=== PATIENT | female | born 1980 | race Caucasian/White ===

== ENCOUNTER 2017-06-13 04:24 | Emergency (ER) | payer OTHER ==
[~2017-06-13] VITALS: Ht 157.5 cm; Wt 56.0 kg
[2017-06-13 04:35] VITALS: Ht 157.5 cm; Wt 56.0 kg
[2017-06-13 07:08] LABS: BASOPHIL # 0.1 10^3/ul (0.0-0.1); BASOPHILS % 0.5 % (0.0-2.0); EOSINOPHILS # 0.3 10^3/ul (0.0-0.5); EOSINOPHILS % 2.9 % (0.0-7.0); HEMATOCRIT 42.6 % (37.0-47.0); HEMOGLOBIN 14.3 g/dl (12.0-16.0); LYMPHOCYTES # 3.1 10^3/ul (0.8-2.9); LYMPHOCYTES % 32.2 % (15.0-51.0); MEAN CORPUSCULAR HEMOGLOBIN 30.7 pg (29.0-33.0); MEAN CORPUSCULAR HGB CONC 33.6 g/dl (32.0-37.0); MEAN CORPUSCULAR VOLUME 91.4 fl (82.0-101.0); MEAN PLATELET VOLUME 10.8 fl (7.4-10.4); MONOCYTE # 0.6 10^3/ul (0.3-0.9); MONOCYTES % 6.5 % (0.0-11.0); NEUTROPHIL # 5.5 10^3/ul (1.6-7.5); NEUTROPHILS % 57.6 % (39.0-77.0); PLATELET COUNT 263 10^3/UL (140-415); RED BLOOD COUNT 4.66 10^6/ul (4.20-5.40); WHITE BLOOD COUNT 9.6 10^3/ul (4.8-10.8)
[2017-06-13 07:15] LABS: ADD UMIC YES; UR ASCORBIC ACID NEGATIVE (NEGATIVE); UR BACTERIA FEW /HPF (NONE SEEN); UR BILIRUBIN (Dip) NEGATIVE (NEGATIVE); UR BLOOD (Dip) 1+ mg/dL (NEGATIVE); UR CLARITY CLEAR (CLEAR); UR COLOR STRAW (YELLOW); UR GLUCOSE (Dip) NEGATIVE (NEGATIVE); UR KETONES (Dip) NEGATIVE (NEGATIVE); UR LEUKOCYTE ESTERASE (Dip) NEGATIVE Leu/ul (NEGATIVE); UR NITRITE (Dip) NEGATIVE (NEGATIVE); UR RBC 3 /HPF (0-5); UR SPECIFIC GRAVITY (Dip) 1.008 (1.003-1.030); UR TOTAL PROTEIN (Dip) NEGATIVE (NEGATIVE); UR UROBILINOGEN (Dip) NEGATIVE (NEGATIVE)
[2017-06-13 07:21] LABS: ALBUMIN 4.9 g/dl (3.3-4.9); ALBUMIN/GLOBULIN RATIO 1.25; BILIRUBIN,INDIRECT 0.5 mg/dl (0-1.1); BILIRUBIN,TOTAL 0.5 mg/dl (0.2-1.3); CALCIUM 9.7 mg/dl (8.4-10.2); CREATININE 0.73 mg/dl (0.44-1.00); POTASSIUM 3.9 mmol/L (3.5-5.1); TOTAL PROTEIN 8.8 g/dl (6.1-8.1)
[2017-06-13] MEDS ORDERED: SOD CHLORIDE 0.9% 100 ML ONE (07:57)
[2017-06-13] MEDS ORDERED: IOHEXOL 300MG/ML 150 ML BTL ONE (07:57)
--- NOTE | 2017-06-13 08:34 | RADRPT ---
AMENDMENT: 06/13/2017 8:46:49 AM Cruz Mendoza M.D A history of perianal pain was given. There is mild subcutaneous stranding adjacent to the coccyx. N o fluid collection is identified. PROCEDURE: CT Abdomen and pelvis with contrast. CLINICAL INDICATION: Abdominal pain. TECHNIQUE: CT scan of the abdomen and pelvis with contrast was performed on a multi-detector high -resolution CT scanner. The patient was scanned following the uncomplicated administration of 90 cc of Omnipaque 300 intravenous contrast. Coronal and sagittal reformatted images were obtained from the axial source images. Images were reviewed on a high-resolution PACS workstation. One or more of the following dose reduction techniques were used: - Automated exposure control. - Adjustment of the mA and/or kV according to patient size. - Use of iterative reconstruction technique. Exam CTD/vol = 5.23 mGy. Total exam DLP = 269.96 mGy-cm. COMPARISON: None. FINDINGS: Evaluation of the lung bases demonstrates no pleural or parenchymal disease. Abdomen: The liver is normal in size. There is no focal mass or dilatation of the biliary tree. T he gallbladder is not distended. The spleen, pancreas and bilateral adrenal glands are within lisy l limits. Bilateral kidneys are normal in size with symmetric enhancement. There is no focal mass, hydronephrosis or hydroureter. There is no retroperitoneal adenopathy. The abdominal aorta is of normal caliber. There is moderate retained stool within the proximal colon. There is no bowel obstruction or free a ir. The appendix is not visualized. There are no pericecal inflammatory changes to suggest appendic itis. There is no diverticulosis or diverticulitis. There is no ascites. Pelvis: The bladder is unremarkable. There is an intrauterine device. There is a right ovarian cy st measuring 2.0 x 1.9 cm. There is no significant pelvic adenopathy or free fluid. Evaluation of the osseous structures demonstrates no suspicious lytic or blastic lesion. IMPRESSION: Moderate retained stool within the proximal colon. Right ovarian 2.0 cm cyst. Intrauterine device. Otherwise no acute abnormality identified within the abdomen and pelvis. .Cruz Mendoza MD, Date Time Electronically viewed and signed by .Cruz Mendoza MD, on 06/13/2017 08:46 .T/
[2017-06-13] MEDS ORDERED: LIDOCAINE 1% (MDV) 20 ML INJ SC ONE (09:00)
[2017-06-13] MEDS ORDERED: SULF1TAB31 PO (09:33)
[2017-06-13] MEDS ORDERED: IBUP400T22 PO (09:33)
[2017-06-13] MEDS ORDERED: CEPH-443 PO (09:33)
--- NOTE | 2017-06-13 10:01 | ERD ---
ER Documentation Chief Complaint Date/Time DATE: 06/13/17 TIME: 09:55 Chief Complaint rectum oozing w/serosanguinous fluid as per pt, r/t childbirth HPI 37-year-old female patient with a past medical history of status post appendectomy as well as hemorrhoids presents to the ED anal pain that started 3 days ago. Reports that it was oozing with yellowish pink discharge. Denies having anal sex. Denies vaginal bleeding, fever, chills, vaginal discharge, dysuria, urgency, melena, bloody stools, frequency. Denies any chest pain, abdominal pain, nausea, vomiting. ROS All systems reviewed and are negative except as per history of present illness. Medications Home Meds Active Scripts Clindamycin Hcl* (Clindamycin Hcl*) 300 Mg Capsule, 300 MG PO TID for 10 Days, CAP Prov:TATIANA LASSITER NP 06/16/17 Ibuprofen* (Motrin*) 400 Mg Tab, 400 MG PO Q6, #30 TAB Prov:JIMMY MCGREGOR-C 06/13/17 Sulfamethoxazole/Trimethoprim* (Bactrim Ds* Tablet) 1 Each Tablet, 1 TAB PO BID for 7 Days, #14 TAB Prov:JIMMY MCGREGOR-C 06/13/17 Cephalexin* (Keflex*) 500 Mg Capsule, 500 MG PO QID for 7 Days, CAP Prov:JIMMY MCGREGOR PA-C 06/13/17 Allergies Allergies: Coded Allergies: Penicillins (Verified Allergy, Unknown, 06/13/17) PMhx/Soc History of Surgery: Yes (appendectomy) Hx Alcohol Use: Yes (occassional) Hx Substance Use: No Hx Tobacco Use: No Smoking Status: Current some day smoker Physical Exam Vitals Vital Signs Date Time Temp Pulse Resp B/P Pulse Ox O2 Delivery O2 Flow Rate FiO2 06/13/17 04:35 98.3 81 18 128/83 100 Physical Exam Const: [id number], well-nourished. In no acute distress. Head: Atraumatic, normocephalic Eyes: Normal Conjunctiva without injection. No purulent discharge. ENT: Normal external ear, nose. Moist oropharynx without tonsillar exudates. Non -erythematous pharynx. Uvula midline. No drooling. No trismus. Neck: No cervical midline tenderness. Full range of motion. No meningismus. No cervical lymphadenopathy. No JVD. Resp: Clear to auscultation bilaterally. No wheezing, rhonchi, rales, or crackles. No accessory muscle use. No retractions. Cardio: Regular rate and rhythm. No murmurs, rubs or gallops. Abd: Soft, nontender, non distended. Normal bowel sounds. No palpable masses. No rebound tenderness. No guarding. Negative McBurney's point. Negative psoas sign. Negative obturator sign. 2 x 2 centimeter fluctuant abscess noted on the superior portion of patient's anus. No surrounding erythema or edema. Yellow purulent discharge noted. Tenderness to palpation of the abscess. Skin: No petechiae or rashes Back: No midline tenderness. No CVA tenderness. Ext: No cyanosis, or edema. Neur: Awake and alert. Normal gait. Normal coordination. Psych: Normal Mood and Affect Results 24 hrs Laboratory Tests Test 06/13/17 06:50 White Blood Count 9.610^3/ul Red Blood Count 4.6610^6/ul Hemoglobin 14.3g/dl Hematocrit 42.6% Mean Corpuscular Volume 91.4fl Mean Corpuscular Hemoglobin 30.7pg Mean Corpuscular Hemoglobin Concent 33.6g/dl Red Cell Distribution Width 12.0% Platelet Count 11029^3/UL Mean Platelet Volume 10.8fl Neutrophils % 57.6% Lymphocytes % 32.2% Monocytes % 6.5% Eosinophils % 2.9% Basophils % 0.5% Nucleated Red Blood Cells % 0.0/100WBC Neutrophils # 5.510^3/ul Lymphocytes # 3.110^3/ul Monocytes # 0.610^3/ul Eosinophils # 0.310^3/ul Basophils # 0.110^3/ul Nucleated Red Blood Cells # 0.010^3/ul Urine Color STRAW Urine Clarity CLEAR Urine pH 6.0 Urine Specific [place] 1.008 Urine Ketones NEGATIVEmg/dL Urine Nitrite NEGATIVEmg/dL Urine Bilirubin NEGATIVEmg/dL Urine Urobilinogen NEGATIVEmg/dL Urine Leukocyte Esterase NEGATIVELeu/ul Urine Microscopic RBC 3/HPF Urine Microscopic WBC 2/HPF Urine Bacteria FEW/HPF Urine Hemoglobin 1+mg/dL Urine Glucose NEGATIVEmg/dL Urine Total Protein NEGATIVEmg/dl Sodium Level 141mmol/L Potassium Level 3.9mmol/L Chloride Level 104mmol/L Carbon Dioxide Level 25mmol/L Anion Gap 16 Blood Urea Nitrogen 11mg/dl Creatinine 0.73mg/dl Glucose Level 100mg/dl Calcium Level 9.7mg/dl Total Bilirubin 0.5mg/dl Direct Bilirubin 0.00mg/dl Indirect Bilirubin 0.5mg/dl Aspartate Amino Transf (AST/SGOT) 19IU/L Alanine Aminotransferase (ALT/SGPT) 30IU/L Alkaline Phosphatase 54IU/L Total Protein 8.8g/dl Albumin 4.9g/dl Globulin 3.90g/dl Albumin/Globulin Ratio 1.25 Lipase 131U/L Current Medications Medications (Trade) Dose Ordered Sig/Amirah Route PRN Reason Start Time Stop Time Status Last Admin Dose Admin IV Flush 10 ml 10 ml STK-MED ONCE .ROUTE 06/13/17 07:57 06/13/17 07:58 DC 06/13/17 08:16 Sodium Chloride (NS) 100 ml @ ud STK-MED ONCE .ROUTE 06/13/17 07:57 06/13/17 07:58 DC 06/13/17 08:16 Iohexol (Omnipaque 300mg/ ml) 150 ml STK-MED ONCE .ROUTE 06/13/17 07:57 06/13/17 07:58 DC 06/13/17 08:17 Lidocaine (Xylocaine 1% (Mdv) 20 ml) 20 ml ONCE ONCE SC 06/13/17 09:00 06/13/17 09:01 DC Procedures/MDM 37-year-old female patient with no significant past medical history presents to the ED complaining of drainage noted near her rectum. Patient is afebrile and nontoxic-appearing. Patient has normal vital signs. Patient was further worked up with CBC, CMP, lipase, UA, CT of abdomen and pelvis with contrast. CBC: No leukocytosis. No e/o of systemic infection. No e/o anemia. CMP: No e/o severe acidosis, alkalosis, renal failure, diabetic ketoacidosis, liver disease Lipase within normal limits. Urine: No leukocyte esterase, no nitrites, no hematuria. Urine : Negative AMENDMENT: 06/13/2017 8:46:49 AM Cruz Mendoza M.D A history of perianal pain was given. There is mild subcutaneous stranding adjacent to the coccyx. No fluid collection is identified. PROCEDURE: CT Abdomen and pelvis with contrast. CLINICAL INDICATION: Abdominal pain. TECHNIQUE: CT scan of the abdomen and pelvis with contrast was performed on a multi-detector high-resolution CT scanner. The patient was scanned following the uncomplicated administration of 90 cc of Omnipaque 300 intravenous contrast. Coronal and sagittal reformatted images were obtained from the axial source images. Images were reviewed on a high-resolution PACS workstation. One or more of the following dose reduction techniques were used: - Automated exposure control. - Adjustment of the mA and/or kV according to patient size. - Use of iterative reconstruction technique. Exam CTD/vol = 5.23 mGy. Total exam DLP = 269.96 mGy-cm. COMPARISON: None. FINDINGS: Evaluation of the lung bases demonstrates no pleural or parenchymal disease. Abdomen: The liver is normal in size. There is no focal mass or dilatation of the biliary tree. The gallbladder is not distended. The spleen, pancreas and bilateral adrenal glands are within normal limits. Bilateral kidneys are normal in size with symmetric enhancement. There is no focal mass, hydronephrosis or hydroureter. There is no retroperitoneal adenopathy. The abdominal aorta is of normal caliber. There is moderate retained stool within the proximal colon. There is no bowel obstruction or free air. The appendix is not visualized. There are no pericecal inflammatory changes to suggest appendicitis. There is no diverticulosis or diverticulitis. There is no ascites. Pelvis: The bladder is unremarkable. There is an intrauterine device. There is a right ovarian cyst measuring 2.0 x 1.9 cm. There is no significant pelvic adenopathy or free fluid. Evaluation of the osseous structures demonstrates no suspicious lytic or blastic lesion. IMPRESSION: Moderate retained stool within the proximal colon. Right ovarian 2.0 cm cyst. Intrauterine device. Otherwise no acute abnormality identified within the abdomen and pelvis. Patient likely has a perianal abscess. Patient gave consent to drain it at this time. Betadine used to clean the affected area. 11 blade scalpel used to make a 0.5 cm vertical linear cut with copious purulent discharged drained. No complications after the procedure. Patient tolerated the procedure. Low suspicion for perirectal abscess, deep space infection, abscess tracking, fissures, fistula, or other emergent conditions. Low suspicion for ectopic , ovarian torsion, gastritis, GERD, peptic ulcer disease, cholecystitis , choledocholithiasis, cholangitis, pancreatitis, appendicitis, bowel obstruction, ileus, volvulus, nephrolithiasis, pyelonephritis, hepatitis, perforated viscus, diverticulitis, strangulated/incarcerated hernia, DKA, acute abdomen, mesenteric ischemia or other emergent conditions. Discharge medications: Bactrim Keflex, Ibuprofen Follow up with primary care physician in 1-2 days for referral to [facility]. Instructed patient to return to the ED sooner for any worsening symptoms. Patient's questions were answered. Patient understood and agreed with discharge plan. Patient discharged stable. Departure Diagnosis: Primary Impression: Perianal abscess Condition: Stable Patient Instructions: Jennifer-Anal Abscess, I And D Referrals: COMMUNITY CLINICS YOU HAVE RECEIVED A MEDICAL SCREENING EXAM AND THE RESULTS INDICATE THAT YOU DO NOT HAVE A CONDITION THAT REQUIRES URGENT TREATMENT IN THE EMERGENCY DEPARTMENT. FURTHER EVALUATION AND TREATMENT OF YOUR CONDITION CAN WAIT UNTIL YOU ARE SEEN IN YOUR DOCTORS OFFICE WITHIN THE NEXT 1-2 DAYS. IT IS YOUR RESPONSIBILITY TO MAKE AN APPOINTMENT FOR FOLOW-UP CARE. IF YOU HAVE A PRIMARY DOCTOR --you should call your primary doctor and schedule an appointment IF YOU DO NOT HAVE A PRIMARY DOCTOR YOU CAN CALL OUR PHYSICIAN REFERRAL HOTLINE AT IF YOU CAN NOT AFFORD TO SEE A PHYSICIAN YOU CAN CHOSE FROM THE FOLLOWING [facility] [address] [facility]. [facility] [address] [facility]. [facility] [address] [facility] [address] [facility]. [facility] [address] [facility]. [facility]. [address] [facility] YOU HAVE RECEIVED A MEDICAL SCREENING EXAM AND THE RESULTS INDICATE THAT YOU DO NOT HAVE A CONDITION THAT REQUIRES URGENT TREATMENT IN THE EMERGENCY DEPARTMENT. FURTHER EVALUATION AND TREATMENT OF YOUR CONDITION CAN WAIT UNTIL YOU ARE SEEN IN YOUR DOCTORS OFFICE WITHIN THE NEXT 1-2 DAYS. IT IS YOUR RESPONSIBILITY TO MAKE AN APPOINTMENT FOR FOLOW-UP CARE. IF YOU HAVE A PRIMARY DOCTOR --you should call your primary doctor and schedule and appointment IF YOU DO NOT HAVE A PRIMARY DOCTOR YOU CAN CALL OUR PHYSICIAN REFERRAL HOTLINE AT . IF YOU CAN NOT AFFORD TO SEE A PHYSICIAN YOU CAN CHOSE FROM THE FOLLOWING [facility] INSTITUTIONS: [facility] [address] [place] [address] [facility] [address] [place] [address] [facility] [address] [place] [address] [facility] URGENT CARE/SPECIALTIES Additional Instructions: Follow up in 2 days in your clinic for wound check. Call your primary care doctor TOMORROW for an appointment during the next 2-3 days.See the doctor sooner or return here if your condition worsens before your appointment time. JIMMY MCGREGOR PA-C Jun 13, 2017 10:01
[2017-06-13 10:05] VITALS: BP 116/72; PULSE 76; RESP 18; TEMP 98.2
== END 2017-06-13 10:07 | disposition home or self-care (01) ==
LOC: FTE 04:24
DX: K61.0 Anal abscess (principal); F17.210 Nicotine dependence, cigarettes, uncomplicated
CPT/HCPCS: 36415; 46050; 74177; 80053; 81001; 83690; 85025; Q9967; Z7502; Z7610

== ENCOUNTER 2017-06-16 01:14 | Emergency (ER) | payer OTHER ==
[~2017-06-16] VITALS: Ht 157.5 cm; Wt 56.0 kg
[~2017-06-16 01:14] MED LIST: CEPH-443 PO; IBUP400T22 PO; SULF1TAB31 PO
[2017-06-16 01:27] VITALS: Ht 157.5 cm; Wt 56.0 kg
[2017-06-16] MEDS ORDERED: CLINDAMYCIN 300 MG INJ IM ONE (04:00)
[2017-06-16] MEDS ORDERED: CLIN-73 PO (04:23)
--- NOTE | 2017-06-16 04:48 | ERD ---
ER Documentation Chief Complaint Date/Time DATE: 06/16/17 TIME: 04:32 Chief Complaint sacral abscess took ibuprofen 0045 HPI 37-year-old female presents here in emergency department for reevaluation, patient has soft tissue abscess in the perirectal area, was treated 2 days ago, had incision and drainage done, patient is currently on Bactrim and Keflex. Patient started to spike a fever today and got more worried. Patient states that the swelling has resolved in. Patient does not have any other symptoms. ROS All systems reviewed and are negative except as per history of present illness. Medications Home Meds Active Scripts Clindamycin Hcl* (Clindamycin Hcl*) 300 Mg Capsule, 300 MG PO TID for 10 Days, CAP Prov:TATIANA LASSITER NP 06/16/17 Ibuprofen* (Motrin*) 400 Mg Tab, 400 MG PO Q6, #30 TAB Prov:JIMMY MCGREGOR-C 06/13/17 Sulfamethoxazole/Trimethoprim* (Bactrim Ds* Tablet) 1 Each Tablet, 1 TAB PO BID for 7 Days, #14 TAB Prov:JIMMY MCGREGOR-C 06/13/17 Cephalexin* (Keflex*) 500 Mg Capsule, 500 MG PO QID for 7 Days, CAP Prov:JIMMY MCGREGOR-C 06/13/17 Allergies Allergies: Coded Allergies: Penicillins (Verified Allergy, Unknown, 06/13/17) PMhx/Soc History of Surgery: Yes (appendectomy) Hx Alcohol Use: Yes Hx Substance Use: No Hx Tobacco Use: Yes Smoking Status: Current every day smoker Physical Exam Vitals Vital Signs Date Time Temp Pulse Resp B/P Pulse Ox O2 Delivery O2 Flow Rate FiO2 06/16/17 01:27 101.9 88 18 107/52 97 Physical Exam GENERAL: The patient is well developed and appropriate for usual state of health, in no apparent distress. CHEST: Clear to auscultation bilaterally. There are no rales, wheezes or rhonchi. HEART: Regular rate and rhythm. No murmurs, clicks, rubs or gallops. No S3 or S4. ABDOMEN: Soft, nontender and nondistended. Good bowel sounds. No rebound or guarding. No gross peritonitis. No gross organomegaly or masses. No Coates sign or McBurney point tenderness. BACK: No midline or flank tenderness. EXTREMITIES: Equal pulses bilaterally. There is no peripheral clubbing, cyanosis or edema. No focal swelling or erythema. Full range of motion. Grossly neurovascularly intact. NEURO: Alert and oriented. Cranial nerves 2-12 intact. Motor strength in all 4 extremities with 5/5 strength. Sensation grossly intact. Normal speech and gait. SKIN: There is no apparent rash or petechia. The skin is warm and dry. Good healing abscess in the sarah beth-anal area, no fluctuance noted. HEMATOLOGIC AND LYMPHATIC: There is no evidence of excessive bruising or lymphedema. No gross cervical, axillary, or inguinal lymphadenopathy. Results 24 hrs Current Medications Medications (Trade) Dose Ordered Sig/Amirah Route PRN Reason Start Time Stop Time Status Last Admin Dose Admin Clindamycin Phosphate (Cleocin) 600 mg ONCE ONCE IM 06/16/17 04:00 06/16/17 04:01 DC 06/16/17 04:22 Clindamycin was given here in emergency department for treatment of infection. Procedures/MDM Medical decision making: Patient symptoms most likely is consistent with a soft tissue abscess. At this time, it is healing well, patient spiked a fever, likely from the infection, patient's antibiotics will be changed to clindamycin. Patient was given a dose here in the emergency department. No symptoms of sepsis. Patient appears well is hemodynamic stable. Fever is controlled. Patient was advised to return to emergency department for any worsening symptoms. Disposition: Home. Stable Departure Diagnosis: Primary Impression: Abscess Condition: Stable Patient Instructions: Abscess, Incision And Drainage TATIANA LASSITER NP Jun 16, 2017 04:46
== END 2017-06-16 04:29 | disposition home or self-care (01) ==
LOC: FTE 01:14
DX: K61.1 Rectal abscess (principal); F17.210 Nicotine dependence, cigarettes, uncomplicated
CPT/HCPCS: 96372; Z7502; Z7610